=== PATIENT | female | born 1950 | race Caucasian/White ===

== ENCOUNTER 2017-06-26 10:32 | Outpatient (CLI) | payer MEDICARE ==
[2017-06-26] MEDS ORDERED: 0.9 % SODIUM CHLORIDE 1,000 ML IV ONE (10:45)
[2017-06-26] MEDS ORDERED: SALINE FLUSH 10 ML DISP.SYRIN IVF ONE ×2 (10:45→11:00)
[2017-06-26] MEDS ORDERED: NORMAL SALINE 1,000 ML IV.SOLN IV ONE (11:00)
== END 2017-06-26 12:15 ==
LOC: INF 10:32
PROVIDERS: ATTEND Family Medicine
DX: R19.7 Diarrhea, unspecified (principal); R11.2 Nausea with vomiting, unspecified; E86.0 Dehydration
CPT/HCPCS: 87045; 87046; 87177; 87328; 87329; 87427; 87493; 96360; 96361; J7030; S1016

== ENCOUNTER 2017-06-26 10:32 | Outpatient (CLI) | payer MEDICARE | END 2017-06-26 10:33 | LOC: LAB 10:32 | PROVIDERS: ATTEND Family Medicine | DX: R19.7 Diarrhea, unspecified (principal); R11.2 Nausea with vomiting, unspecified; E86.0 Dehydration | CPT/HCPCS: 87045; 87046; 87177; 87328; 87329; 87427; 87493 ==

== ENCOUNTER 2017-07-14 09:53 | Outpatient (CLI) | payer MEDICARE ==
[2017-07-14] MEDS ORDERED: ALBUTEROL SULFATE 2.5 MG/3 ML AMPUL.NEB NEB ONE (10:26)
--- NOTE | 2017-07-14 12:36 | Diagnostic Imaging Report ---
DAISY WORLEY [facility] [id number] [facility] [address] [id number] Report Submission Date: Jul 14, 2017 11:34:35 AM AMBULATORY CARE COORDINATOR Patient Study Name: ARIE LOPEZ Date: Jul 14, 2017 10:44:34 AM AMBULATORY CARE COORDINATOR Modality Type: CR Gender: F Description: CHEST : 54 Institution: [facility] Physician: DAISY WORLEY Chest PA and lateral views Clinical history: Preop for cholecystectomy , history of asthma Normal heart shadow and mediastinum. Clear lungs without acute infiltrates or pleural effusion. Normal appearing bony thorax Impression: No active pulmonary pathology Electronically signed on Jul 14, 2017 11:34:35 AM AMBULATORY CARE COORDINATOR by: Farhad BARILLAS
== END 2017-07-14 09:54 ==
LOC: RT 09:53
PROVIDERS: ATTEND Family Medicine
DX: J45.998 Other asthma (principal)
CPT/HCPCS: 71020; 94060